=== PATIENT | female | born 1985 | race Caucasian/White ===

== ENCOUNTER 2022-12-24 08:34 | Outpatient (AMB) | payer OTHER, SELFPAY ==
--- NOTE | 2022-12-24 07:16 | A.OFFPC_ITS ---
Intake Visit Reasons: follow up on depression [phone] Allergies No Known Allergies Allergy (Verified 04/21/22 17:09) Medication List - Last Reconciled 12/24/22 by Stanislaw Padilla [facility] albuterol sulfate 90 mcg/actuation 2 puffs inhalation Q6H PRN fluoxetine 10 mg PO DAILY lorazepam 0.5 mg PO DAILY PRN 30 days melatonin 3 mg PO BEDTIME PRN ondansetron 8 mg PO Q12H PRN 10 days phentermine 15 mg PO DAILY 30 days semaglutide (weight loss) (Wegovy) 0.25 mg (0.5 mL) subcut QWEEK 30 days Tobacco use date assessed: 04/21/22 HPI follow up on depression [phone] HPI Details Depression: Pt recently took a leave of absence from work due to depression. Pt reports that her left her 3.5 weeks ago (unexpectedly). She reports doing better and is planning to go back to work next week. Will fill out paperwork for the time she was off and intermittent leave. She is currently weaning off fluoxetine and is taking 10mg. Pt has a therapist. Denies any SI and HI. [facility] Medical History (Updated 08/17/22 @ 16:04 by CARLEE FerrariMANISH) TMJ (temporomandibular joint syndrome) Social History (Reviewed 04/21/22 @ 17:08 by Stanislaw Pad[facility] Housing: House Patient Tobacco Use Status: Never used Tobacco e-Cigarette/Vaping Use: Never Used Second Hand Smoke Exposure: No Current occupational status: employed Current occupation: [employer] Current occupational exposures/hazards: Yes Cognitive needs: No Hearing needs: No Vision needs: No Questionnaire Thrive Questionnaire Date Thrive assessed: 04/21/22 TANYA-7 AMB Questionnaire TANYA-7 Date TANYA - 7 assessed: 04/21/22 Source: Developed by Drs. George Robles, Padmini Carrasco, Jacob Gamez and colleagues, with an educational kaleb from [employer]. Review of Systems Const Reports as per HPI Physical exam (Primary Care) Tobacco/Smoking Status: Tobacco use Status Tobacco use date assessed 04/21/22 12/24/22 07:22 Patient Tobacco Use Status Never used Tobacco 12/24/22 07:22 e-Cigarette/Vaping Use Never Used 12/24/22 07:22 Thrive Assessment: Date of Thrive Assessment Date Thrive assessed 04/21/22 12/24/22 07:22 Const General: cooperative Orientation/consciousness: patient oriented x3 Neuro General: patient oriented x3 Psych Appearance: grossly normal Mental Status: mental status grossly normal Speech and movement: Clear speech present Affect: normal affect Attitude: cooperative Thought process: Normal thought process present Thought content: Normal thought content present Insight: Good insight present (Psych) Judgement: Good judgement present (Psych) Telehealth Telehealth Location of provider rendering services: practice address Location of patient: address on file Patient Identification confirmed using: Name, : Yes Telehealth method: video Patient verbally consented to treatment: Yes Patient verbally consented to billing insurance company: Yes Patient informed of any privacy concerns related to visit: Yes Minutes spent on Phone/Video with Pt.: 10 Assessment and Plan Assessment & Plan (1) Anxiety and depression: Code(s): F41.9 - Anxiety disorder, unspecified; F32.9 - Major depressive disorder, single episode, unspecified Plan The patient agreed to the use of a certified medical records coder for this encounter. Scribed for CARLEE Jarquin-BC by Evelyn Johnson certified medical records coder, on 12/24/2022 at 07:15 EST. Medications: Refilled lorazepam 0.5 mg PO DAILY 30 days PRN 30 tabs 2RF anxiety attacks Coding Level of Care Code Tele Est Pt Level 3 (50115) Diagnoses Anxiety and depression F41.9; F32.9
== END 2022-12-24 08:39 | disposition home or self-care (01) ==
PROVIDERS: PCP Nurse Practitioner Family; Visit Provider Nurse Practitioner Family
DX: F41.9 Anxiety disorder, unspecified (principal); F33.9 Major depressive disorder, recurrent, unspecified
CPT/HCPCS: 99213

== ENCOUNTER 2023-09-14 12:48 | Outpatient (AMB) | payer OTHER, SELFPAY ==
[2023-09-14 12:50] VITALS: BP 120/70; PULSE 76; O2SAT 100; BMI 26.2
--- NOTE | 2023-09-14 12:50 | A.OFFPC_ITS ---
Vital Signs 09/14/23 12:50 Height 5 ft 3 in Weight 148 lb BMI 26.2 BP 120/70 Blood Pressure Location Rt brachial Position Sitting Pulse 76 Pulse Source Pulse Oximeter Pulse Oximetry (%) 100 Intake Visit Reasons: discuss weight loss medication Intake Note: pt is here for weight loss medication Attic Blower Required: No Accompanied by: Self / Same As Patient Allergies No Known Allergies Allergy (Verified 09/14/23 13:08) Medication List - Last Reconciled 09/14/23 by KEITH Ferrari albuterol sulfate 90 mcg/actuation 2 puffs inhalation Q6H PRN lorazepam 0.5 mg PO DAILY PRN melatonin 3 mg PO BEDTIME PRN phentermine 15 mg PO DAILY 30 days Tobacco use date assessed: 09/14/23 Dental Screening Dental Screen Date: 09/14/23 Did you have a dental visit in the last 12 months?: Yes Did you have a dental problem in the last 6 months where you did not have access to dental care?: No Was dental information given to patient?: Patient has dentist HPI discuss weight loss medication HPI Details phentermine follow up. Pt reports feeling great, denies any side effects. Pt is going through a divorce, but doing well. She is in great spirits and seems very happy. Denies any SI and HI. [facility] Medical History (Updated 08/17/22 @ 16:04 by KEITH Ferrari) TMJ (temporomandibular joint syndrome) Surgical History No pertinent past surgical history Social History Housing: House Patient Tobacco Use Status: Never used Tobacco e-Cigarette/Vaping Use: Never Used Second Hand Smoke Exposure: No Current occupational status: employed Current occupation: [employer] Current occupational exposures/hazards: Yes Cognitive needs: No Hearing needs: No Vision needs: No Questionnaire PHQ-9 Over the last 2 weeks, how often have you been bothered by any of the following problems? 1. Little interest or pleasure in doing things: more than half the days 2. Feeling down, depressed, or hopeless: more than half the days 3. Trouble falling or staying asleep, or sleeping too much: more than half the days 4. Feeling tired or having little energy: more than half the days 5. Poor appetite or overeating: more than half the days 6. Feeling bad about yourself - or that you are a failure or have let yourself or your family down: not at all 7. Trouble concentrating on things, such as reading the newspaper or watching television: not at all 8. Moving or speaking so slowly that other people could have noticed. Or the opposite - being so fidgety or restless that you have been moving around a lot more than usual: not at all 9. Thoughts that you would be better off or of hurting yourself in some way: not at all Total score: 10 Depression Screening Interpretation: Negative Depression Screening Done: Yes 69930 - PHQ-9 Billing: Yes Source: Developed by Drs. George Robles, Padmini Carrasco, Jacob Gamez and colleagues, with an educational kaleb from [employer]. Thrive Questionnaire Date Thrive assessed: 09/14/23 I am a: Patient What is your living situation today?: I have a steady place to live Within the past 12 months, did the food you bought not last and you didn't have the money to get more?: Never true Within the past 12 months, did you worry whether your food would run out before you got money to buy more?: Never true Do you have trouble paying for medicines?: No Do you have trouble getting transportation to medical appointments?: No Do you have trouble paying your heating and electricity bill?: No Do you have trouble taking care of your child, family member or friend?: No Do you have trouble with day-to-day activities such as bathing, preparing meals, shopping, managing finances, etc.?: No Are you currently unemployed and looking for a job?: No Are you interested in more education?: No Please select the resources that you would like help with: None Currently or been in a relationship where the following occur: no concerns reported THRIVE Score: 0 AUDIT C Alcohol Use Questionnaire (AUDIT-C) 1. How often do you have a drink containing alcohol?: Monthly or less 2. How many drinks containing alcohol do you have on a typical day when you are drinking?: 1 or 2 3. How often do you have six or more drinks on one occasion?: Never Total Score: 1 Score Reviewed/Action Taken: Yes TANYA-7 AMB Questionnaire TANYA-7 Date TANYA - 7 assessed: 09/14/23 Feeling nervous, anxious, or on edge: 2 = More than half the days Not being able to stop or control worryin = More than half the days Worrying too much about different things: 2 = More than half the days Trouble relaxin = More than half the days Being so restless that it is hard to sit still: 2 = More than half the days Becoming easily annoyed or irritable: 0 = Not at all Feeling afraid as if something awful might happen: 0 = Not at all Total TANYA-7 score (0-4 normal; 5-9 mild; 10-14 moderate; 15-21 severe): 10 Source: Developed by Drs. George Robles, Padmini Carrasco, Jacob Gamez and colleagues, with an educational kaleb from [employer]. TANYA-7 Assessment Billing TANYA-7 Assessment Tool: TANYA-7 Assessment 07525 Review of Systems Const Reports as per HPI Physical exam (Primary Care) Vital Signs: Last Vital Signs Pulse 76 09/14/23 12:50 BP 120/70 09/14/23 12:50 Pulse Ox 100 09/14/23 12:50 BMI result Body Mass Index 26.2 Tobacco/Smoking Status: Tobacco use Status Tobacco use date assessed 09/14/23 09/14/23 12:57 Patient Tobacco Use Status Never used Tobacco 09/14/23 12:57 e-Cigarette/Vaping Use Never Used 09/14/23 12:57 PHQ-9: PHQ-9 Score PHQ-9: Total score 10 09/14/23 12:57 Depression Screening Interpretation: Negative Thrive Assessment: Date of Thrive Assessment Date Thrive assessed 09/14/23 09/14/23 12:57 Currently or been in a relationship where the following occur: no concerns reported Const General: cooperative Orientation/consciousness: patient oriented x3 Resp Effort & Inspection: normal respiratory effort Auscultation: clear to auscultation bilaterally Cardio Rate: regular rate Rhythm: regular rhythm Heart sounds: S1 normal heart sound present and S2 normal heart sound present Neuro General: patient oriented x3 Psych Appearance: grossly normal Mental Status: mental status grossly normal Speech and movement: Normal speech and movement present Affect: normal affect Attitude: cooperative Thought process: Normal thought process present Thought content: Normal thought content present Insight: Good insight present (Psych) Judgement: Good judgement present (Psych) Assessment and Plan Assessment & Plan (1) Anxiety and depression: Code(s): F41.9 - Anxiety disorder, unspecified; F32.9 - Major depressive disorder, single episode, unspecified Plan: Doing well, labs ordered Plan The patient agreed to the use of a medical scheduler for this encounter. Scribed for CARLEE Jarquin-BC by Evelyn Johnson medical scheduler, on 09/14/2023 at 13:00 EST. Orders: Orders Complete Blood Count Auto Diff Today F32.9 - Major depressive disorder, single episode, unspecified, F41.9 - Anxiety disorder, unspecified Comprehensive [place]. Panel Fast Today F32.9 - Major depressive disorder, single episode, unspecified, F41.9 - Anxiety disorder, unspecified UA CC w/rflx Micro + Cult Today F32.9 - Major depressive disorder, single episode, unspecified, F41.9 - Anxiety disorder, unspecified Lipid Panel Today F32.9 - Major depressive disorder, single episode, unspecified, F41.9 - Anxiety disorder, unspecified TSH reflex Free T4 Today F32.9 - Major depressive disorder, single episode, unspecified, F41.9 - Anxiety disorder, unspecified Medications: Refilled phentermine must administer 2 hours after breakfast 15 mg PO DAILY 30 days 30 caps 2RF Coding Level of Care Code Est Pt Level 3 (23963) Diagnoses Anxiety and depression F41.9; F32.9 Additional Codes TANYA-7 Assessment Billing - TNAYA-7 Assessment Tool: TANYA-7 Assessment 71234 ([id number])
== END 2023-09-14 16:18 | disposition home or self-care (01) ==
PROVIDERS: PCP Nurse Practitioner Family; Visit Provider Nurse Practitioner Family
DX: F41.9 Anxiety disorder, unspecified (principal); F32.9 Major depressive disorder, single episode, unspecified
CPT/HCPCS: 99213

== ENCOUNTER → 2024-10-20 14:10 | Outpatient (BNVA) | payer OTHER, SELFPAY | PROVIDERS: PCP Nurse Practitioner Family; Visit Provider Nurse Practitioner Family ==

== ENCOUNTER 2024-11-02 11:10 | Outpatient (AMB) | payer OTHER, SELFPAY ==
--- NOTE | 2024-11-02 11:13 | MHC.PC.OV ---
Vital Signs 11/02/24 11:16 Height 5 ft 3 in Weight 156 lb 6 oz BMI 27.7 BP 108/60 Blood Pressure Location Rt brachial Position Sitting Pulse 75 Pulse Source Pulse Oximeter Temp 98.1 F Temp Source Oral Pulse Oximetry (%) 100 Oxygen Delivery Method Room Air Intake Visit Reasons: Annual PE Intake Note: Pt is here for PE. Allergies No Known Allergies Allergy (Verified 11/02/24 11:16) Medication List - Last Reconciled 11/02/24 by NUHA FerrariP- albuterol sulfate 90 mcg/actuation 2 puffs inhalation Q6H PRN lorazepam 0.5 mg PO DAILY PRN melatonin 3 mg PO BEDTIME PRN phentermine 15 mg PO DAILY Tobacco use date assessed: 11/02/24 Dental Screening Dental Screen Date: 11/02/24 Did you have a dental visit in the last 12 months?: Yes Did you have a dental problem in the last 6 months where you did not have access to dental care?: No Was dental information given to patient?: Patient has dentist HPI Annual PE HPI Details History of Present Illness The patient is a 38-year-old female presenting for a physical examination. She has an enlarged thyroid nodule that is reportedly pushing on her trachea, and she is scheduled for a total thyroidectomy in November. Additionally, she has a thumb injury sustained from closing her thumb in a car door, for which she is wearing a splint and is under orthopedic care. Pt would like a increase in phentermine, knows the side effects. previous Hx of colon screen/tubular adenomas, was told to follow up for a repeat colon screen at age 38. 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 cigar maker for paps endo for thyroid Social History Review of Systems - General: Denies fever, chills - Cardiovascular: Denies chest pain - Respiratory: Denies dyspnea - Gastrointestinal: Denies abdominal pain, blood in stool, constipation, diarrhea -denies any urinary issues Physical Exam General: Cooperative, healthy appearing, comfortable, no acute distress and well developed Orientation: Patient oriented x3 Limitations: No limitations Head: Normal to inspection Ears: Hearing grossly normal bilaterally Nose: Normal external nose present Face and sinus: Normal facial exam Eyes: Appearance normal, both eyes and all related structures Neck: Enlarged thyroid nodule present (left) Respiratory: Normal respiratory effort and able to speak in complete sentences. Clear to auscultation bilaterally Cardiovascular: Regular rate and rhythm. Normal S1 and S2 GI: Normal to inspection. Soft to palpation and nontender Skin: No rashes or lesions noted Neuro: Patient oriented x3 Extremities: Splint on right thumb, otherwise normal to inspection Results Plan The patient will undergo a total thyroidectomy in November to address the enlarged thyroid nodule that is exerting pressure on her trachea. She is advised to continue wearing the splint on her thumb and follow up with orthopedic care for monitoring and management of the thumb injury. mammo order placed increased phentermine has a finished cigar maker doing well overall Discussion Notes pt encouraged to get all labs drawn fasting. Patient Instructions [facility] Medical History (Updated 11/02/24 @ 12:12 by KEITH Ferrari) Crushing injury of right thumb TMJ (temporomandibular joint syndrome) Surgical History No pertinent past surgical history Social History Housing: House Patient Tobacco Use Status: Never used Tobacco e-Cigarette/Vaping Use: Never Used Second Hand Smoke Exposure: No Current occupational status: employed Current occupation: [employer] Current occupational exposures/hazards: Yes Cognitive needs: No Hearing needs: No Vision needs: No Questionnaire PHQ-9 Over the last 2 weeks, how often have you been bothered by any of the following problems? 1. Little interest or pleasure in doing things: not at all 2. Feeling down, depressed, or hopeless: not at all 3. Trouble falling or staying asleep, or sleeping too much: several days 4. Feeling tired or having little energy: not at all 5. Poor appetite or overeating: not at all 6. Feeling bad about yourself - or that you are a failure or have let yourself or your family down: not at all 7. Trouble concentrating on things, such as reading the newspaper or watching television: not at all 8. Moving or speaking so slowly that other people could have noticed. Or the opposite - being so fidgety or restless that you have been moving around a lot more than usual: not at all 9. Thoughts that you would be better off or of hurting yourself in some way: not at all Total score: 1 Depression Screening Interpretation: Negative Depression Screening Done: Yes 45659 - PHQ-9 Billing: Yes Source: Developed by Drs. George Robles, Padmini Carrasco, Jacob Gamez and colleagues, with an educational kaleb from [employer]. Thrive Questionnaire Date Thrive assessed: 11/02/24 I am a: Patient What is your living situation today?: I have a steady place to live Within the past 12 months, did the food you bought not last and you didn't have the money to get more?: Never true Within the past 12 months, did you worry whether your food would run out before you got money to buy more?: Never true Do you have trouble paying for medicines?: No Do you have trouble getting transportation to medical appointments?: No Do you have trouble paying your heating and electricity bill?: No Do you have trouble taking care of your child, family member or friend?: No Do you have trouble with day-to-day activities such as bathing, preparing meals, shopping, managing finances, etc.?: No Are you currently unemployed and looking for a job?: No Are you interested in more education?: No Please select the resources that you would like help with: None Currently or been in a relationship where the following occur: No concerns reported THRIVE Score: 0 AUDIT C Alcohol Use Questionnaire (AUDIT-C) 1. How often do you have a drink containing alcohol?: Monthly or less 2. How many drinks containing alcohol do you have on a typical day when you are drinking?: 1 or 2 3. How often do you have six or more drinks on one occasion?: Never Total Score: 1 Score Reviewed/Action Taken: Yes TANYA-7 AMB Questionnaire TANYA-7 Date TANYA - 7 assessed: 11/02/24 Feeling nervous, anxious, or on edge: 0 = Not at all Not being able to stop or control worryin = Not at all Worrying too much about different things: 0 = Not at all Trouble relaxin = Not at all Being so restless that it is hard to sit still: 0 = Not at all Becoming easily annoyed or irritable: 0 = Not at all Feeling afraid as if something awful might happen: 0 = Not at all Total TANYA-7 score (0-4 normal; 5-9 mild; 10-14 moderate; 15-21 severe): 0 Source: Developed by Drs. George Robles, Padmini Carrasco, Jacob Gamez and colleagues, with an educational kaleb from [employer]. TANYA-7 Assessment Billing TANYA-7 Assessment Tool: TANYA-7 Assessment 47838 Physical exam (Primary Care) Vital Signs: Last Vital Signs Temp 98.1 F 11/02/24 11:16 Pulse 75 11/02/24 11:16 BP 108/60 11/02/24 11:16 Pulse Ox 100 11/02/24 11:16 Oxygen Delivery Method Room Air 11/02/24 11:16 BMI result Body Mass Index 27.7 Tobacco/Smoking Status: Tobacco use Status Tobacco use date assessed 11/02/24 11/02/24 11:20 Patient Tobacco Use Status Never used Tobacco 11/02/24 11:16 e-Cigarette/Vaping Use Never Used 11/02/24 11:16 PHQ-9: PHQ-9 Score PHQ-9: Total score 1 11/02/24 11:20 Depression Screening Interpretation: Negative Thrive Assessment: Date of Thrive Assessment Date Thrive assessed 11/02/24 11/02/24 11:20 Currently or been in a relationship where the following occur: No concerns reported Coding Level of Care Code Est Pt Prev Care 40-64y(36198) Diagnoses Physical exam Z00.00 Tubular adenoma D36.9 Screening for breast cancer Z12.39 Crushing injury of right thumb S67.01XA Nodular goiter E04.9 Additional Codes TANYA-7 Assessment Billing - TANYA-7 Assessment Tool: TANYA-7 Assessment 32113 ([id number]) PHQ-9 - 95640 - PHQ-9 Billing: Yes ([id number]) Assessment & Plan Assessment & Plan (1) Physical exam: Code(s): Z00.00 - Encounter for general adult medical examination without abnormal findings Category: Medical (2) Tubular adenoma: Code(s): D36.9 - Benign neoplasm, unspecified site Category: Medical (3) Screening for breast cancer: Code(s): Z12.39 - Encounter for other screening for malignant neoplasm of breast Category: Medical (4) Crushing injury of right thumb: Code(s): S67.01XA - Crushing injury of right thumb, initial encounter Category: Medical (5) Nodular goiter: Code(s): E04.9 - Nontoxic goiter, unspecified Category: Medical Plan . Orders: Orders Complete Blood Count Auto Diff Today Z00.00 - Encounter for general adult medical examination without abnormal findings Lipid Panel Today Z00.00 - Encounter for general adult medical examination without abnormal findings MM screening mammo BI Today Z12.31 - Encounter for screening mammogram for malignant neoplasm of breast, Z12.39 - Encounter for other screening for malignant neoplasm of breast Comprehensive Black. Panel Fast Today Z00.00 - Encounter for general adult medical examination without abnormal findings TSH reflex Free T4 Today Z00.00 - Encounter for general adult medical examination without abnormal findings UA CC w/rflx Micro + Cult Today Z00.00 - Encounter for general adult medical examination without abnormal findings Referrals Gastroenterology Referral D36.9 - Benign neoplasm, unspecified site Medications: Changed From phentermine must administer 2 hours after breakfast 15 mg PO DAILY 30 caps 1RF To phentermine must administer 2 hours after breakfast 30 mg PO DAILY 30 days 30 caps 1RF
[2024-11-02 11:16] VITALS: BP 108/60; PULSE 75; TEMP 36.7; O2SAT 100; BMI 27.7
== END 2024-11-02 11:44 | disposition home or self-care (01) ==
LOC: HO.HMCC 11:11
PROVIDERS: PCP Nurse Practitioner Family; Visit Provider Nurse Practitioner Family
DX: Z00.00 Encounter for general adult medical examination without abnormal findings (principal); D36.9 Benign neoplasm, unspecified site; Z12.39 Encounter for other screening for malignant neoplasm of breast; S67.01XA Crushing injury of right thumb, initial encounter; E04.9 Nontoxic goiter, unspecified

== ENCOUNTER → 2024-11-02 11:10 | Outpatient (BNVA) | payer OTHER, SELFPAY | PROVIDERS: PCP Nurse Practitioner Family; Visit Provider Nurse Practitioner Family | DX: Z00.00 Encounter for general adult medical examination without abnormal findings (principal); D36.9 Benign neoplasm, unspecified site; E04.9 Nontoxic goiter, unspecified; S67.01XA Crushing injury of right thumb, initial encounter; X58.XXXA Exposure to other specified factors, initial encounter; Y93.9 Activity, unspecified; Y92.9 Unspecified place or not applicable; Y99.9 Unspecified external cause status | CPT/HCPCS: 96127 ==

== ENCOUNTER 2025-02-08 15:00 | Outpatient (AMB) | payer OTHER, SELFPAY ==
[2025-02-08 15:03] VITALS: BP 110/62; PULSE 76; O2SAT 98; BMI 27.5
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
--- OUTSIDE RECORDS SUMMARY | 2025-02-08 16:38 | XMS_ITS | Clinical Summary ---
Author Organization [facility] Address [address] [place] [phone] Phone Care Team Providers Care Cotton Stomper Name Role Phone Stanislaw Padilla CLAMPER Primary Care Provider + Allergies No known active allergies Medications cholecalciferol, vitamin D3, (VITAMIN D3 ORAL) Take by mouth. Active Social History Tobacco Use Types Packs/Day Years Used Date Smoking Tobacco: Never Smokeless Tobacco: Never Alcohol Use Standard Drinks/Week Comments No 0 (1 standard drink = 0.6 oz pur e alcohol) Education Answer Date Recorded Are you interested in more education? Not on aure e 09/18/2022 Are you concerned about learning? Not on file 09/18/2022 No 09/18/2022 No 09/18/2022 Digital Access Answer Date Recorded No 10/16/2022 No 10/16/2022 Reliable internet access at home? Not on file 10/16/2022 Device with a working camera? Not on file Comments Unknown Sex and Gender Information Value Date Recorded Sex Assigned at Not on file Legal Sex Female 9:16 PM EDT Gender Identity Not on file Sexual Orientation Not on file Last Filed Vital Signs Vital Sign Reading Time Taken Comments Blood Pressure - - Pulse - - Temperature - - Respiratory Rate - - Oxygen Saturation - - Inhaled Oxygen Concentration - - Weight 79.4 kg (175 lb) 12/14/2017 4:08 PM EDT Height 157.5 cm (5' 2 ) 12/14/2017 4:08 PM EDT Body Mass Index 32.01 12/14/2017 4:08 PM EDT Plan of Treatment Health Maintenance Due Date Last Done Comments DEPRESSION SCREENING 1995 HEPATITIS C SCREENING 11/07/2001 HIV ONE-TIME SCREENING (18-65 YEARS) 11/07/2001 PAP SMEAR 11/07/2004 MAMMOGRAM 2023 INFLUENZA VACCINE (#1) 2024 , 03/08/2019, 03/15/2017, Additional history exists COVID-19 VACCINE ( - 2024- season) 2025 06/17/2020, 05/20/2020 Adult Td,Tdap Booster 01/24/2025 01/24/2015 SMOKING STATUS SCREENING (Once After 26 Yrs) Completed 07/19/2018 HEPATITIS A VACCINES Aged Out No long er eligible based on patient's age to complete this topic HIB VACCINES Aged Out No longer eligi ble based on patient's age to complete this topic MENINGOCOCCAL VACCINES (ACWY) Aged Out No longer eligible based on patient's age to complete this topic MENINGOCOCCAL VACCINES (B) Aged Out N o longer eligible based on patient's age to complete this topic PNEUMOCOCCAL VACCINES (0-49 years) Aged Out No longer eligible based on patient's age to complete this topic Medical Devices Not on file Insurance [address] [place], [place] [address]O [facility] [address] [place] [place] [address] Address: [address] [address] Care Teams Cotton Stomper Relationship Specialty Start Date End Date Stanislaw Padilla NP [address] [address] PCP - General Family Medicine 12/14/17 Additional Source Comments The information contained in this document represents components of the legal health record. It is not the complete legal health record.[facility]
== END 2025-02-08 16:42 | disposition home or self-care (01) ==
LOC: HO.HMCC 15:01
PROVIDERS: PCP Nurse Practitioner Family; Visit Provider Physician Assistant
DX: M25.511 Pain in right shoulder (principal); V89.2XXA Person injured in unspecified motor-vehicle accident, traffic, initial encounter

== ENCOUNTER → 2025-02-08 15:00 | Outpatient (BNVA) | payer OTHER, SELFPAY | PROVIDERS: PCP Nurse Practitioner Family; Visit Provider Physician Assistant | DX: M25.511 Pain in right shoulder (principal); E89.0 Postprocedural hypothyroidism; V89.2XXD Person injured in unspecified motor-vehicle accident, traffic, subsequent encounter | CPT/HCPCS: 96127 ==